=== PATIENT | male | born 1985 | race Caucasian/White ===

== ENCOUNTER 2016-12-02 17:09 | Emergency (ER) | payer BC ==
[~2016-12-02] VITALS: Ht 180.3 cm; Wt 70.0 kg
[~2016-12-02 17:09] MED LIST: KEFLEX500 MG PO; NOHOMEMEDS; TRAMADOL HCL50 MG PO
[2016-12-02] MEDS ORDERED: TOBREX5 ML RIGHT EYE (18:22)
[2016-12-02] MEDS ORDERED: ERYTHROMYCIN O3.5 GM RIGHT EYE (18:22)
[2016-12-02 18:33] VITALS: BP 122/79
== END 2016-12-02 18:33 | disposition home or self-care (01) ==
LOC: EME 17:09
PROC: 08C8XZZ Extirpation of Matter from Right Cornea, External Approach (ICD-10-PCS; principal; 2016-12-02)
DX: T15.01XA Foreign body in cornea, right eye, initial encounter (principal); W22.8XXA Striking against or struck by other objects, initial encounter; Y93.89 Activity, other specified
CPT/HCPCS: 99281; 99282

== ENCOUNTER 2017-10-03 12:24 | Inpatient (IN) | payer OTHER ==
[~2017-10-03] VITALS: Ht 180.3 cm; Wt 74.0 kg
[~2017-10-03 12:24] MED LIST changes: +ERYTHROMYCIN O3.5 GM RIGHT EYE; +TOBREX5 ML RIGHT EYE
[2017-10-03 17:29] VITALS: BP 123/76
[2017-10-03] MEDS ORDERED: EXTRA STRENGTH500 M1 PO (17:59)
[2017-10-03] MEDS ORDERED: BACITRACIN28.4 GM TP (18:00)
[2017-10-03] MEDS ORDERED: DECADRON4 M1 PO (18:02)
[2017-10-03] MEDS ORDERED: CALCIUM 500 MG1 EACH PO (18:02)
[2017-10-03] MEDS ORDERED: BENADRYL25 MG PO (18:03)
[2017-10-03] MEDS ORDERED: ANTI-ITCH28 G1 TP (18:04)
[2017-10-03] MEDS ORDERED: DUONEB 2.5-0.5 M3 ML AEROSOL (18:05)
[2017-10-03] MEDS ORDERED: CULTURELLE1 EAC1 PO (18:05)
[2017-10-03] MEDS ORDERED: LACTULOSE10 GM/151 PO (18:06)
[2017-10-03] MEDS ORDERED: LIDODERM 5% P1 PATCH TD (18:07)
[2017-10-03] MEDS ORDERED: NAPROXEN500 MG PO (18:08)
[2017-10-03] MEDS ORDERED: ROXICODONE15 MG PO (18:08)
[2017-10-03] MEDS ORDERED: MIRALAX17 GM PO (18:09)
[2017-10-03] MEDS ORDERED: SENOKOT S,PE1 TABLET PO (18:09)
[2017-10-03] MEDS ORDERED: FLORASTOR250 MG PO (18:09)
[2017-10-03] MEDS ORDERED: MS CONTIN,ORAMO15 M1 PO (18:10)
[2017-10-03] MEDS ORDERED: NABI650T PO (18:10)
[2017-10-03] MEDS ORDERED: ROXICODONE5 MG PO (18:12)
[2017-10-03 22:51] VITALS: BP 130/80
[2017-10-04 05:52] VITALS: BP 109/62
[2017-10-04 07:38] LABS: HEMATOCRIT 32.7 % (38.0-50.0); HEMOGLOBIN 10.5 G/DL (12.5-16.6); MCH 29.8 PG (29.0-34.0); MCHC 32.1 G/DL (30.0-36.0); MCV 92.9 FL (86-99); NRBC (%) 0.1 /100 WBC (0-0); PLATELET COUNT 982 K/uL (156-360); RBC DIS.WIDTH-CV 16.6 % (11.8-14.6); RBC DIS.WIDTH-SD 54.6 % (39-53); RED BLOOD COUNT 3.52 M/uL (4.00-5.50); WHITE BLOOD COUNT 16.7 K/uL (4.1-10.2)
[2017-10-04 08:01] LABS: ALBUMIN 3.5 G/DL (3.2-4.8); ALKALINE PHOSPHATASE 228 IU/L (3-129); ALT (GPT) 40 IU/L (3-49); AST (GOT) 27 IU/L (2-34); CHLORIDE 100 MEQ/L (99-109); CREATININE 0.6 MG/DL (0.6-1.3); GFR ESTIMATE (CALCULATED) > 59 mL/min/ (58.99-99999); GLUCOSE 90 mg/dL (70-99); POTASSIUM 4.5 MEQ/L (3.7-5.4); SODIUM 134 MEQ/L (136-147); TOTAL BILIRUBIN 0.6 MG/DL (0.0-1.0); TOTAL PROTEIN 6.4 G/DL (6.4-8.3); UREA NITROGEN (BUN) 16 mg/dL (9-23)
[2017-10-04 15:18] VITALS: BP 109/61
[2017-10-05 06:02] LABS: BASOPHIL (%) 1.5 % (0-1); BASOPHIL COUNT 0.2 K/uL (0-0.1); EOSINOPHIL (%) 24.6 % (0-5); EOSINOPHIL COUNT 3.8 K/uL (0-0.3); HEMATOCRIT 31.6 % (38.0-50.0); HEMOGLOBIN 10.3 G/DL (12.5-16.6); LYMPHOCYTE (%) 17.6 % (15-42); LYMPHOCYTE COUNT 2.7 K/uL (1.0-2.8); MCH 30.1 PG (29.0-34.0); MCHC 32.6 G/DL (30.0-36.0); MCV 92.4 FL (86-99); MONOCYTE (%) 9.3 % (3-12); MONOCYTE COUNT 1.4 K/uL (0-0.8); NEUTROPHIL COUNT 6.6 K/uL (1.8-6.4); PLATELET COUNT 906 K/uL (156-360); RBC DIS.WIDTH-CV 16.2 % (11.8-14.6); RBC DIS.WIDTH-SD 54.1 % (39-53); RED BLOOD COUNT 3.42 M/uL (4.00-5.50); WHITE BLOOD COUNT 15.3 K/uL (4.1-10.2)
[2017-10-05 06:14] VITALS: BP 108/57
[2017-10-05 06:22] LABS: IRON 30 MCG/DL (35-150); TRANSFERRIN (TIBC) 204.9 mg/dL (215-380); TRANSFERRIN SATUR. 15 % (20-55)
[2017-10-05 10:07] LABS: THYROTROPIN (TSH) 5.4 MIU/L (0.4-5.5)
[2017-10-05 10:13] LABS: FERRITIN 291 NG/ML (22-322)
[2017-10-05 15:28] VITALS: BP 111/64
[2017-10-06 05:48] VITALS: BP 111/62
[2017-10-06 08:28] LABS: FOLIC ACID (FOLATE) > 22.0 NG/ML (5.0-22.0)
[2017-10-06 19:13] VITALS: BP 114/68
[2017-10-07 05:54] VITALS: BP 102/59
[2017-10-07 06:12] LABS: HEMOGLOBIN 10.2 G/DL (12.5-16.6); MCH 30.4 PG (29.0-34.0); MCHC 32.9 G/DL (30.0-36.0); MCV 92.3 FL (86-99); PLATELET COUNT 679 K/uL (156-360); RBC DIS.WIDTH-CV 15.9 % (11.8-14.6); RBC DIS.WIDTH-SD 53.3 % (39-53); RED BLOOD COUNT 3.36 M/uL (4.00-5.50); WHITE BLOOD COUNT 11.7 K/uL (4.1-10.2)
[2017-10-07 15:30] VITALS: BP 119/59
[2017-10-08 05:26] VITALS: BP 108/58
[2017-10-08 06:00] LABS: BASOPHIL (%) 1.3 % (0-1); BASOPHIL COUNT 0.1 K/uL (0-0.1); EOSINOPHIL (%) 24.1 % (0-5); EOSINOPHIL COUNT 2.4 K/uL (0-0.3); HEMATOCRIT 30.8 % (38.0-50.0); HEMOGLOBIN 9.9 G/DL (12.5-16.6); IMMATURE GRANULOCYTE (%) 1.5 % (0.0-0.7); LYMPHOCYTE (%) 23.1 % (15-42); LYMPHOCYTE COUNT 2.3 K/uL (1.0-2.8); MCH 29.7 PG (29.0-34.0); MCHC 32.1 G/DL (30.0-36.0); MCV 92.5 FL (86-99); MONOCYTE (%) 11.9 % (3-12); MONOCYTE COUNT 1.2 K/uL (0-0.8); NEUTROPHIL (%) 38.1 % (45-76); NEUTROPHIL COUNT 3.8 K/uL (1.8-6.4); PLATELET COUNT 618 K/uL (156-360); RBC DIS.WIDTH-CV 15.6 % (11.8-14.6); RBC DIS.WIDTH-SD 53.1 % (39-53); RED BLOOD COUNT 3.33 M/uL (4.00-5.50); WHITE BLOOD COUNT 9.8 K/uL (4.1-10.2)
[2017-10-08 15:01] VITALS: BP 118/67
[2017-10-09 05:13] VITALS: BP 103/52
[2017-10-09 15:04] VITALS: BP 121/58
[2017-10-10 04:21] VITALS: BP 101/61; BP 116/70
[2017-10-10 15:35] VITALS: BP 118/71
[2017-10-11 05:56] VITALS: BP 111/62
[2017-10-11 15:55] VITALS: BP 115/69
[2017-10-12 04:28] VITALS: BP 104/57
[2017-10-12 06:27] LABS: ALBUMIN 3.5 G/DL (3.2-4.8); ALKALINE PHOSPHATASE 229 IU/L (3-129); ALT (GPT) 76 IU/L (3-49); AST (GOT) 51 IU/L (2-34); CHLORIDE 99 MEQ/L (99-109); CREATININE 0.6 MG/DL (0.6-1.3); GFR ESTIMATE (CALCULATED) > 59 mL/min/ (58.99-99999); GLUCOSE 111 mg/dL (70-99); SODIUM 137 MEQ/L (136-147); TOTAL BILIRUBIN 0.4 MG/DL (0.0-1.0); TOTAL PROTEIN 6.2 G/DL (6.4-8.3); UREA NITROGEN (BUN) 12 mg/dL (9-23)
[2017-10-12 06:52] LABS: HEMATOCRIT 31.8 % (38.0-50.0); HEMOGLOBIN 10.1 G/DL (12.5-16.6); MCH 29.3 PG (29.0-34.0); MCHC 31.8 G/DL (30.0-36.0); MCV 92.2 FL (86-99); PLAT.SUFFICIENCY INCREASED; RBC DIS.WIDTH-CV 15.6 % (11.8-14.6); RBC DIS.WIDTH-SD 52.7 % (39-53); RED BLOOD COUNT 3.45 M/uL (4.00-5.50); WHITE BLOOD COUNT 8.7 K/uL (4.1-10.2)
[2017-10-12 06:53] LABS: PLATELET COUNT 431 K/uL (156-360)
[2017-10-12 17:33] VITALS: BP 129/60
[2017-10-13 02:13] LABS: BASOPHIL (%) 1.5 % (0-1); BASOPHIL COUNT 0.1 K/uL (0-0.1); EOSINOPHIL (%) 13.5 % (0-5); EOSINOPHIL COUNT 1.2 K/uL (0-0.3); IMMATURE GRANULOCYTE (%) 0.5 % (0.0-0.7); LYMPHOCYTE (%) 26.2 % (15-42); LYMPHOCYTE COUNT 2.3 K/uL (1.0-2.8); MONOCYTE (%) 11.5 % (3-12); NEUTROPHIL (%) 46.8 % (45-76); NEUTROPHIL COUNT 4.1 K/uL (1.8-6.4)
[2017-10-13 05:24] VITALS: BP 103/55
[2017-10-13 05:41] LABS: ALBUMIN 3.6 G/DL (3.2-4.8); ALKALINE PHOSPHATASE 280 IU/L (3-129); ALT (GPT) 71 IU/L (3-49); AST (GOT) 43 IU/L (2-34); DIRECT BILIRUBIN 0.1 mg/dL (0.0-0.3); TOTAL BILIRUBIN 0.4 MG/DL (0.0-1.0); TOTAL PROTEIN 6.1 G/DL (6.4-8.3)
[2017-10-13 16:31] VITALS: BP 114/66
[2017-10-14 05:59] VITALS: BP 114/64
[2017-10-14] MEDS ORDERED: AMITIZA24 MICROGR PO (09:53)
[2017-10-14] MEDS ORDERED: OXYCODONE HCL10 MG PO (09:53)
[2017-10-14] MEDS ORDERED: MOVANTIK25 MG PO (09:53)
[2017-10-14] MEDS ORDERED: Salonpas 4% Patch TD (09:53)
[2017-10-14] MEDS ORDERED: GABAPENTIN300 MG PO (09:53)
[2017-10-14] MEDS ORDERED: MIRALAX17 GM PO (09:53)
[2017-10-14] MEDS ORDERED: SENOKOT S,PE1 TABLET PO (09:53)
[2017-10-14] MEDS ORDERED: VITAMIN D31000 UNI2 PO (09:53)
[2017-10-14] MEDS ORDERED: LOVENOX40 MG/0.4 SC (09:53)
[2017-10-14 16:17] VITALS: BP 127/73
[2017-10-15 05:36] VITALS: BP 125/58
[2017-10-15 07:26] LABS: A/G RATIO 1.2 (1.1-1.8); ALBUMIN 3.3 G/DL (3.4-5.0); GLOBULINS 2.8 G/DL (2.3-3.5); TOTAL PROTEIN 6.1 G/DL (6.4-8.2)
[2017-10-15 09:56] LABS: HEPATITIS B SURFACE ANTIGEN Nonreactive; HEPATITIS C ANTIBODY Nonreactive
[2017-10-15 09:58] LABS: ANTI-HEPATITIS A VIRUS (IGM) Nonreactive
[2017-10-15 09:59] LABS: ANTI-HEPATITIS B CORE (IGM) Nonreactive
[2017-10-15 10:10] LABS: HEPATITIS B SURFACE ANTIBODY REACTIVE
[2017-10-17 21:11] LABS: HAPTOGLOBIN+ 162 mg/dL (43-212)
[2017-10-18 11:28] LABS: ALBUMIN 3.23 G/DL (3.6-4.9); ALPHA-1 GLOBULIN 0.35 G/DL (0.15-0.40); ALPHA-2 GLOBULIN 0.73 G/DL (0.45-0.85); BETA-GLOBULIN 0.76 G/DL (0.65-1.15); GAMMA-GLOBULIN 1.03 G/DL (0.60-1.35)
[2017-10-18 18:14] LABS: MITOCHONDRIAL (M2) ANTIBODIES+ <=20.0 U (<=20.0)
== END 2017-10-15 11:34 | disposition home health service (06) | DRG 560 ==
LOC: 3WEST 12:24 → ENPENDDIS 10-15 → 3WEST 10-15 11:34
PROVIDERS: Internal Medicine; Physical Medicine & Rehabilitation Pain Medicine; Specialist
PROC: F07M0ZZ Range of Motion and Joint Mobility Treatment of Musculoskeletal System - Whole Body (ICD-10-PCS; principal; 2017-10-03)
DX: S72.002D Fracture of unspecified part of neck of left femur, subsequent encounter for closed fracture with routine healing (principal); S84.12XD Injury of peroneal nerve at lower leg level, left leg, subsequent encounter; M21.372 Foot drop, left foot; R26.2 Difficulty in walking, not elsewhere classified; S52.501D Unspecified fracture of the lower end of right radius, subsequent encounter for closed fracture with routine healing; S54.21 Injury of radial nerve at forearm level, right arm; S52.601D Unspecified fracture of lower end of right ulna, subsequent encounter for closed fracture with routine healing; S42.301D Unspecified fracture of shaft of humerus, right arm, subsequent encounter for fracture with routine healing; S22.20XD Unspecified fracture of sternum, subsequent encounter for fracture with routine healing; S22.43XD Multiple fractures of ribs, bilateral, subsequent encounter for fracture with routine healing; S32.019D Unspecified fracture of first lumbar vertebra, subsequent encounter for fracture with routine healing; S32.029D Unspecified fracture of second lumbar vertebra, subsequent encounter for fracture with routine healing; S32.039D Unspecified fracture of third lumbar vertebra, subsequent encounter for fracture with routine healing; S32.049D Unspecified fracture of fourth lumbar vertebra, subsequent encounter for fracture with routine healing; S32.059D Unspecified fracture of fifth lumbar vertebra, subsequent encounter for fracture with routine healing; G89.18 Other acute postprocedural pain; E87.1 Hypo-osmolality and hyponatremia; D47.3 Essential (hemorrhagic) thrombocythemia; D64.9 Anemia, unspecified; K59.03 Drug induced constipation; T40.605A Adverse effect of unspecified narcotics, initial encounter; F17.200 Nicotine dependence, unspecified, uncomplicated; R21 Rash and other nonspecific skin eruption; R74.8 Abnormal levels of other serum enzymes
CPT/HCPCS: 71046; 73060; 73110; 73552; 74018; 74019; 76705; 80053; 80076; 82390; 82607; 82728; 82746; 83010 90; 83540; 84075 90; 84080 90; 84165; 84443; 84466; 85025; 85027; 86256 90; 86705; 86706; 86708 90; 86709; 86803; 87340; 94010; 94640; 94640 76; 97110 GO; 97530 GP; 99202; J1650

== ENCOUNTER 2018-01-25 20:32 | Emergency (ER) | payer OTHER ==
[~2018-01-25] VITALS: Ht 180.3 cm; Wt 68.7 kg
[~2018-01-25 20:32] MED LIST changes: +AMITIZA24 MICROGR PO; +ANTI-ITCH28 G1 TP; +BACITRACIN28.4 GM TP; +BENADRYL25 MG PO; +CALCIUM 500 MG1 EACH PO; +CULTURELLE1 EAC1 PO; +DECADRON4 M1 PO; +DUONEB 2.5-0.5 M3 ML AEROSOL; +EXTRA STRENGTH500 M1 PO; +FLORASTOR250 MG PO; +GABAPENTIN300 MG PO; +LACTULOSE10 GM/151 PO; +LIDODERM 5% P1 PATCH TD; +LOVENOX40 MG/0.4 SC; +MIRALAX17 GM PO; +MOVANTIK25 MG PO; +MS CONTIN,ORAMO15 M1 PO; +NABI650T PO; +NAPROXEN500 MG PO; +OXYCODONE HCL10 MG PO; +ROXICODONE15 MG PO; +ROXICODONE5 MG PO; +SENOKOT S,PE1 TABLET PO; +Salonpas 4% Patch TD; +VITAMIN D31000 UNI2 PO
[2018-01-25 23:43] VITALS: BP 140/85
== END 2018-01-25 23:44 | disposition home or self-care (01) ==
LOC: EME 20:32
DX: M25.552 Pain in left hip (principal); Z87.81 Personal history of (healed) traumatic fracture; F17.200 Nicotine dependence, unspecified, uncomplicated
CPT/HCPCS: 73502; 99281; 99283